=== PATIENT | male | born 1980 | race Caucasian/White ===

== ENCOUNTER 2020-05-17 22:21 | Emergency (ER) | payer BC, OTHER ==
[~2020-05-17] VITALS: Ht 188 cm; Wt 90.7 kg
[2020-05-17 22:56] LABS: ABSOLUTE NEUTROPHILS 5.7 thou/uL (1.4-8.2); BASOPHILS 0.9 % (0.0-2.0); EOSINOPHILS 1.5 % (0.0-3.0); HEMATOCRIT 47.1 % (42.0-52.0); HEMOGLOBIN 16.1 gm/dL (14.0-18.0); LYMPHOCYTES 27.7 % (24.0-44.0); MCH 30.1 pg (26.0-34.0); MCHC 34.2 g/dL (28.0-37.0); MCV 88.1 fL (80.0-100.0); MONOCYTES 9.1 % (1.0-8.0); PLATELET COUNT 279 thou/uL (150-400); POLYS 60.8 % (36.0-66.0); RBC 5.35 mil/uL (4.50-6.00); RDW 13.6 % (10.5-14.5); WBC 9.4 thou/uL (4.0-11.0)
[2020-05-17 22:58] LABS: ANION GAP 0 mmol/L (7-16); BUN 20 mg/dL (7-18); CALCIUM 8.7 mg/dL (8.5-10.1); CHLORIDE 103 mmol/L (98-107); CO2 30 mmol/L (21-32); CREATININE 1.2 mg/dL (0.7-1.3); GLUCOSE 121 mg/dL (74-106); POTASSIUM 3.4 mmol/L (3.5-5.1); SODIUM 133 mmol/L (136-145)
[2020-05-17 23:07] LABS: LIPASE 102 U/L (73-393); SGOT 23 U/L (15-37); SGPT 48 U/L (16-63); TOTAL BILIRUBIN 0.6 mg/dL (0.2-1.0); TOTAL PROTEIN 7.3 g/dL (6.4-8.2); TROPONIN-I <0.06 ng/mL (<0.06)
[2020-05-17] MEDS ORDERED: IBUPROFEN 800800 MG PO (23:59)
[2020-05-18 00:09] VITALS: BP 147/98
--- NOTE | 2020-05-18 06:56 | EKG ---
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1980 Requested By: Keny Galeas Order Number: [id number] MD: Prashant Ness Measurements Intervals [place] Rate: 100 P: 66 NV: 148 QRS: 52 QRSD: 100 T: 52 QT: 343 QTc: 443 Interpretive Statements Sinus tachycardia Probable left atrial enlargement RSR' in V1 or V2, probably normal variant Baseline wander in lead(s) I,aVR No previous ECG available for comparison Electronically Signed On 05-18-2020 6:56:07 [employer] by Prashant Ness [email or web address] <ELECTRONICALLY SIGNED> By: Prashant Ness MD, [facility] 05/18/20 [id number] Prashant Ness MD, FACC /EPI
== END 2020-05-18 00:11 | disposition home or self-care (01) ==
LOC: ER 22:21
PROVIDERS: Emergency Medicine
DX: R07.89 Other chest pain (principal); M77.8 Other enthesopathies, not elsewhere classified; F17.210 Nicotine dependence, cigarettes, uncomplicated